=== PATIENT | male | born 1935 | race Hispanic/Latino ===

== ENCOUNTER → 2018-08-02 | Outpatient (CLI) | payer MEDICARE ==
--- NOTE | 2018-08-02 12:57 | NUR ---
MBSS COMPLETED. +DEEP NON-TRANSIENT PENETRATION WITH THIN, PUDDING-THICK LIQUIDS. RECOMMEND MECHANICAL SOFT/CHOPPED, PUDDING-THICK LIQUIDS; PILLS CRUSHED WITH APPLESAUCE. PATIENT INFORMATION: PT IS AN 83 YEAR OLD MALE REFERRED FOR AN MBSS SECONDARY TO HISTORY OF DYSPHAGIA WITH CURRENT PEG PLACEMENT. DAUGHTER ACCOMPANIED Pt AND SERVED THE PRIMARY INFORMANT FOR MEDICAL AND SOCIAL HISTORY. Pt REPORTS THAT HE CURRENTLY TAKES ONE CAN OF FORMULA VIA PEG (AND WATER) AND IS EATING BY MOUTH. HE STATES THAT HE DOES NOT FEEL ANY ISSUES SWALLOWING AT THIS TIME. DAUGHTER REPORTS Pt GOES TO AN ADULT DAY CARE DURING THE DAY. Pt HAS A PAST MEDICAL HISTORY SIGNIFICANT FOR PACEMAKER PLACEMENT 12/21/2017, FALL 12/20/2017, PEG PLACEMENT 12/28/2018, [facility]2018. 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 TRACE ASPIRATION WITH THIN LIQUIDS IS SUSPECTED. PLEASE NOTE Pt HAS ABSENT COUGH RESPONSE. DELAYED THROAT CLEAR (4 MINUTES AFTER THE MBSS) PRESENT. RECOMMENDATIONS: 1. MECHANICAL SOFT/CHOPPED, PUDDING-THICK LIQUIDS; PILLS CRUSHED WITH APPLE SAUCE. 2. COMPENSATORY STRATEGIES: *SEATED AT 90 DEGREES *NO MIXED TEXTURES *RE-SWALLOW X2. 3. USE PEG TUBE TO SUPPLEMENT P.O AND FOR HYDRATION Pt IS AT HIGH RISK FOR DEHYDRATION DUE TO PUDDING-THICK LIQUIDS. 4. SKILLED SPEECH THERAPY IS RECOMMENDED 3-5XWK TARGETING THE AFOREMENTIONED WEAKNESSES. PRODUCT EVANGELIST PROVIDED Pt/DAUGHTER WITH A WRITTEN HANDOUT FOR RECOMMENDATIONS AND SAFE SWALLOW PRECAUTION. THEY WERE PROVIDED WITH THICKENER AND INSTRUCTION ON HOW TO REACH PUDDING-THICK LIQUIDS. ALL QUESTIONS ANSWERED AT THIS TIME. G-CODES SWALLOWING: [id number] Addendum: 08/02/18 at 1312 by MALIHA STONE, [facility] Amended: Links added.
== END | disposition home or self-care (01) ==
LOC: RAH 08:47
PROVIDERS: ATTEND Internal Medicine Gastroenterology
DX: R13.12 Dysphagia, oropharyngeal phase (principal); R63.3 Feeding difficulties; Z93.1 Gastrostomy status
CPT/HCPCS: 74230; 92611; G8996; G8997; G8998

== ENCOUNTER → 2018-08-05 | Outpatient (CLI) | payer MEDICARE ==
[~2018-08-05] MED LIST: DIATR MEGLU/DIATRIZOATE SODIUM 30 ML BOTTLE ONE
== END | disposition home or self-care (01) ==
LOC: RAH 11:56
PROVIDERS: ATTEND Internal Medicine Gastroenterology
DX: Z43.1 Encounter for attention to gastrostomy (principal)
CPT/HCPCS: 74018; Q9963

== ENCOUNTER 2018-09-22 05:26 | Day surgery (SDC) | payer MEDICARE ==
[~2018-09-22] VITALS: Ht 157.5 cm; Wt 58.5 kg
[2018-09-22] VITALS (7 sets, daily range): BP systolic 88–194; BP diastolic 37–76
[~2018-09-22 05:26] MED LIST changes: +ASPI-555 PO; +ATOR20TA65 PO; +BIMA12.5OS OD; -DIATR MEGLU/DIATRIZOATE SODIUM 30 ML BOTTLE ONE; +FOLI1TAB15 PO; +MULT-1192 PO
[2018-09-22] MEDS ORDERED: SODIUM CHLORIDE 0.9% 1000ML 1,000 ML IV ONE (05:46)
[2018-09-22] MEDS ORDERED: PROPOFOL 10 MG/ML 20ML VIAL IV ONE (06:32)
[2018-09-22] MEDS ORDERED: PHENYLEPHRINE HCL 10 MG/ML 1ML VIAL IV ONE (06:46)
== END 2018-09-22 07:27 | disposition home or self-care (01) ==
LOC: DAH 05:26
PROVIDERS: ATTEND Internal Medicine
DX: K29.50 Unspecified chronic gastritis without bleeding (principal); K31.89 Other diseases of stomach and duodenum; K22.8 Other specified diseases of esophagus; I10 Essential (primary) hypertension; M19.90 Unspecified osteoarthritis, unspecified site; E78.5 Hyperlipidemia, unspecified; E11.9 Type 2 diabetes mellitus without complications; Z98.84 Bariatric surgery status; Z98.890 Other specified postprocedural states; Z79.899 Other long term (current) drug therapy; Z79.01 Long term (current) use of anticoagulants; D50.9 Iron deficiency anemia, unspecified
CPT/HCPCS: 43239; 82948; 88305; 93005; A4606; J2370; J2704; J7030

== ENCOUNTER → 2019-03-15 | Outpatient (CLI) | payer MEDICARE ==
--- NOTE | 2019-03-15 10:30 | NUR ---
MBSS COMPLETED. TRANSIENT PENETRATION WITH THIN LIQUIDS. RECOMMEND MECHANICAL SOFT/GROUND, NECTAR-THICK LIQUIDS; PILLS CRUSHED WITH APPLESAUCE. TANNING DRUM OPERATOR PROVIDED RESULTS AND RECOMMENDATIONS VIA VERBAL AND WRITTEN MODALITY. TANNING DRUM OPERATOR PROVIDED CAN OF THICKENER FOR Pt. HE VERBALIZED AGREEMENT AND UNDERSTANDING WITH DIET CHANGE. ALL QUESTIONS ANSWERED AT THIS TIME. TANNING DRUM OPERATOR's EXTENSION WAS PROVIDED FOR QUESTIONS IN A LATER TIME. Addendum: 03/15/19 at 1318 by MALIHA STONE [facility] Amended: Links added.
== END | disposition home or self-care (01) ==
LOC: RAH 09:59
PROVIDERS: ATTEND Internal Medicine Gastroenterology
DX: R13.12 Dysphagia, oropharyngeal phase (principal); R63.3 Feeding difficulties
CPT/HCPCS: 74230; 92611